=== PATIENT | female | born 1970 | race African-American/Black ===

== ENCOUNTER 2019-02-25 09:29 | Emergency (ER) | payer MEDICAID ==
[~2019-02-25] VITALS: Ht 172.7 cm; Wt 155.0 kg
[2019-02-25] MEDS ORDERED: MORPHINE SULFATE 4 MG/ML CPJ (NOT FOR IM USE) IV ONE ×2 (10:15→11:30)
[2019-02-25] MEDS ORDERED: HYDROCODONE/ACETAMINOPHEN 5/325MG TABLET PO ONE (13:30)
[2019-02-25 14:24] VITALS: BP 196/83
== END 2019-02-25 18:37 | disposition home or self-care (01) ==
LOC: ER 09:29
DX: S89.81XA Other specified injuries of right lower leg, initial encounter (principal); W18.39XA Other fall on same level, initial encounter; Y93.89 Activity, other specified; Y92.89 Other specified places as the place of occurrence of the external cause; Y99.8 Other external cause status; E78.00 Pure hypercholesterolemia, unspecified; I10 Essential (primary) hypertension; Z95.0 Presence of cardiac pacemaker
CPT/HCPCS: 73552; 73562; 73590; 73700; 96374; 96376; 99284; J2270

== ENCOUNTER 2019-03-11 11:05 | Emergency (ER) | payer MEDICAID ==
[~2019-03-11] VITALS: Ht 172.7 cm; Wt 158.0 kg
[2019-03-11] MEDS ORDERED: ONDANSETRON HCL 4MG/2ML INJ IV STA (12:19)
[2019-03-11] MEDS ORDERED: SODIUM CHLORIDE 0.9% 1,000 ML IV ONE (12:19)
[2019-03-11] MEDS ORDERED: MORPHINE SULFATE 4 MG/ML CPJ (NOT FOR IM USE) IV STA (12:19)
[2019-03-11] MEDS ORDERED: LIDOCAINE 1%/EPI 1:100,000 10 ML VIAL IJ ONE (12:30)
[2019-03-11] MEDS ORDERED: TETANUS, DIPHTHERIA, PERTUSSIS VAC/PF 0.5ML (>7YR OLD) IM ONE (12:30)
[2019-03-11 13:11] LABS: BASOPHILS % 0.8 % (0.0-2.0); EOSINOPHILS % 2.3 % (0.0-5.0); HEMATOCRIT. 31.4 % (36.0-48.0); HEMOGLOBIN. 10.1 g/dL (12.0-16.0); LYMPHOCYTES % 19.8 % (20.0-50.0); MEAN CORPUSCULAR HEMOGLOBIN 27.8 pg (28.0-32.0); MEAN CORPUSCULAR VOLUME 86.2 fL (81.0-99.0); MEAN PLATELET VOLUME 7.6 fl (7.4-10.4); MONOCYTES % 9.3 % (2.0-8.0); NEUTROPHILS % 67.8 % (40.0-76.0); PLATELET 299 x1000/uL (130-400); RED BLOOD CELL COUNT 3.64 mill/uL (4.2-5.4); RED CELL DISTRIBUTION WIDTH 15.2 % (11.6-14.6)
[2019-03-11] MEDS ORDERED: LIDOCAINE HCL/EPINEPHRINE 1%-EPI 1:100,000 20 ML VIAL INFIL SCH (13:15)
[2019-03-11 13:18] LABS: CHLORIDE 104 mEq/L (98-107)
[2019-03-11] MEDS ORDERED: PIPERACILLIN/TAZ 3.375G PREMIX 50 ML IV ONE (13:45)
[2019-03-11] MEDS ORDERED: POTASSIUM CHLORIDE 20MEQ TABLET SR PO ONE (13:45)
[2019-03-11] MEDS ORDERED: VANCOMYCIN 1 G PREMIX 200 ML IV ONE (13:45)
[2019-03-11 14:45] VITALS: BP 176/88
[2019-03-11] MEDS ORDERED: HYDROCODONE/ACETAMINOPHEN 5/325MG TABLET PO ONE (14:45)
== END 2019-03-11 17:01 | disposition home or self-care (01) ==
LOC: ER 11:05
DX: E87.6 Hypokalemia (principal); I10 Essential (primary) hypertension; Z90.49 Acquired absence of other specified parts of digestive tract; Z98.890 Other specified postprocedural states
CPT/HCPCS: 36415; 71045; 80053; 85025; 90471; 90715; 93971; 96365; 96368; 96375; 99284; J2270; J2405; J2543; J3370; J3490; J7030

== ENCOUNTER 2019-03-26 21:42 | Emergency (ER) | payer MEDICAID ==
[~2019-03-26] VITALS: Ht 172.7 cm; Wt 140.0 kg
[2019-03-26] MEDS ORDERED: SODIUM CHLORIDE 0.9% 1,000 ML IV ONE (22:56)
[2019-03-26] MEDS ORDERED: MORPHINE SULFATE 4 MG/ML CPJ (NOT FOR IM USE) IV STA (22:56)
[2019-03-26] MEDS ORDERED: ONDANSETRON 4MG ODT PO STA (22:56)
[2019-03-26] MEDS ORDERED: CLONIDINE 0.1MG TABLET PO ONE (23:00)
[2019-03-26 23:55] LABS: BASOPHILS % 0.3 % (0.0-2.0); EOSINOPHILS % 2.5 % (0.0-5.0); HEMATOCRIT. 31.9 % (36.0-48.0); HEMOGLOBIN. 10.3 g/dL (12.0-16.0); LYMPHOCYTES % 15.7 % (20.0-50.0); MEAN CORPUSCULAR HEMOGLOBIN 27.3 pg (28.0-32.0); MEAN CORPUSCULAR VOLUME 84.3 fL (81.0-99.0); MEAN PLATELET VOLUME 7.8 fl (7.4-10.4); MONOCYTES % 5.4 % (2.0-8.0); NEUTROPHILS % 76.1 % (40.0-76.0); PLATELET 360 x1000/uL (130-400); RED BLOOD CELL COUNT 3.78 mill/uL (4.2-5.4); RED CELL DISTRIBUTION WIDTH 15.3 % (11.6-14.6)
[2019-03-27 00:05] LABS: PARTIAL THROMBOPLASTIN TIME 22.1 sec (23.4-31.0); PROTHROMBIN TIME 10.1 sec (9.6-11.0)
[2019-03-27 00:12] LABS: CHLORIDE 107 mEq/L (98-107)
[2019-03-27 00:33] LABS: HCG SCREEN NEGATIVE
[2019-03-27] MEDS ORDERED: MORPHINE SULFATE 4 MG/ML CPJ (NOT FOR IM USE) IV ONE ×2 (00:45→03:00)
[2019-03-27] MEDS ORDERED: BACITRACIN ZINC OINT UDPKT TOP ONE (03:30)
[2019-03-27 04:52] VITALS: BP 131/65
== END 2019-03-27 04:54 | disposition home or self-care (01) ==
LOC: ER 21:42
DX: S20.01XA Contusion of right breast, initial encounter (principal); S50.312A Abrasion of left elbow, initial encounter; M25.561 Pain in right knee; M79.602 Pain in left arm; I11.9 Hypertensive heart disease without heart failure; M54.30 Sciatica, unspecified side; Z90.49 Acquired absence of other specified parts of digestive tract; Z98.890 Other specified postprocedural states; Z98.84 Bariatric surgery status; V49.88XA Car occupant (driver) (passenger) injured in other specified transport accidents, initial encounter; Y93.89 Activity, other specified; Y92.511 Restaurant or cafe as the place of occurrence of the external cause; Y99.8 Other external cause status
CPT/HCPCS: 36415; 71045; 73030; 73060; 73070; 73090; 73562; 80053; 84484; 84703; 85025; 85610; 85730; 93005; 96374; 96376; 99284; J2270; J7030; Q0162

== ENCOUNTER 2019-04-03 04:26 | Inpatient (IN) | payer MEDICAID ==
[~2019-04-03] VITALS: Ht 175.3 cm; Wt 163.3 kg
[2019-04-03] MEDS ORDERED: MORPHINE SULFATE 4 MG/ML CPJ (NOT FOR IM USE) IV STA ×2 (05:42→06:30)
[2019-04-03] MEDS ORDERED: ONDANSETRON HCL 4MG/2ML INJ IV STA ×2 (05:42→06:30)
[2019-04-03] MEDS ORDERED: SODIUM CHLORIDE 0.9% 1,000 ML IV ONE (06:30)
[2019-04-03 07:23] LABS: HEMATOCRIT. 25.4 % (36.0-48.0); HEMOGLOBIN. 8.3 g/dL (12.0-16.0); MEAN CORPUSCULAR HEMOGLOBIN 27.4 pg (28.0-32.0); MEAN PLATELET VOLUME 7.5 fl (7.4-10.4); PLATELET 216 x1000/uL (130-400); RED BLOOD CELL COUNT 3.03 mill/uL (4.2-5.4); RED CELL DISTRIBUTION WIDTH 15.3 % (11.6-14.6)
[2019-04-03 07:29] LABS: PROTHROMBIN TIME 10.2 sec (9.6-11.0)
[2019-04-03 07:31] LABS: CHLORIDE 106 mEq/L (98-107)
[2019-04-03 07:41] LABS: HCG SCREEN NEGATIVE
[2019-04-03 09:36] LABS: PLATELET ESTIMATE NORMAL
[2019-04-03] MEDS ORDERED: MORPHINE SULFATE 10 MG/ML CPJ IV ONE ×2 (09:45→13:15)
[2019-04-03] MEDS ORDERED: IOHEXOL-300 100 ML BOTTLE ONE (09:55)
[2019-04-03] MEDS ORDERED: CEFAZOLIN 1000MG PREMIX 50 ML IV ONE (10:45)
[2019-04-03 18:30] VITALS: BP 154/68
[2019-04-03] MEDS ORDERED: DOCU250C14 PO (18:51)
[2019-04-03] MEDS ORDERED: COR12 PO (18:51)
[2019-04-03] MEDS ORDERED: CARI250T PO (18:51)
[2019-04-03] MEDS ORDERED: ISOS1TAB PO (18:51)
[2019-04-03] MEDS ORDERED: ACETAMINOPHEN 325MG TABLET PO PRN (20:30)
[2019-04-03] MEDS: ONDANSETRON HCL 4MG/2ML INJ IV PRN (20:59)
[2019-04-03] MEDS: MORPHINE SULFATE 2 MG/ML CPJ (NOT FOR IM USE) IV PRN (21:00)
[2019-04-03] MEDS ORDERED: VANCOMYCIN 2,000 MG in DEXT 5% WATER 500 ML IV NR (22:00)
[2019-04-03] MEDS: HYDROCODONE/ACETAMINOPHEN 5/325MG TABLET PO PRN (22:05)
[2019-04-03] MEDS: PIPERACILLIN/TAZOBACTAM 3.375 G in DEXT 5% WATER 100 ML IV SCH (22:24)
[2019-04-04] VITALS: BP 119/61
[2019-04-04] MEDS: ONDANSETRON HCL 4MG/2ML INJ IV PRN (02:16)
[2019-04-04] MEDS: MORPHINE SULFATE 2 MG/ML CPJ (NOT FOR IM USE) IV PRN ×5 (02:17→21:09)
[2019-04-04] MEDS: HYDROCODONE/ACETAMINOPHEN 5/325MG TABLET PO PRN (02:48)
[2019-04-04] MEDS: SODIUM CHLORIDE 0.9% 1,000 ML IV SCH ×2 (04:31→21:10)
[2019-04-04] MEDS: PIPERACILLIN/TAZOBACTAM 3.375 G in DEXT 5% WATER 100 ML IV SCH ×3 (05:39→18:14)
[2019-04-04 07:00] LABS: HEMATOCRIT. 24.4 % (36.0-48.0); HEMOGLOBIN. 8.2 g/dL (12.0-16.0); MEAN CORPUSCULAR HEMOGLOBIN 27.7 pg (28.0-32.0); MEAN CORPUSCULAR VOLUME 83.1 fL (81.0-99.0); MEAN PLATELET VOLUME 7.2 fl (7.4-10.4); PLATELET 228 x1000/uL (130-400); RED BLOOD CELL COUNT 2.94 mill/uL (4.2-5.4); RED CELL DISTRIBUTION WIDTH 15.3 % (11.6-14.6)
[2019-04-04 07:07] LABS: CHLORIDE 105 mEq/L (98-107)
[2019-04-04 08:00] VITALS: BP 143/70
[2019-04-04 10:50] LABS: PLATELET ESTIMATE NORMAL
[2019-04-04] MEDS: VANCOMYCIN 1500MG in DEXTROSE 5% WATER 250ML IV SCH ×2 (11:30→21:09)
[2019-04-04 12:00] VITALS: BP 156/73
[2019-04-04 16:27] VITALS: BP 172/96
[2019-04-04 19:02] VITALS: BP 155/82
[2019-04-04 20:00] VITALS: BP 137/67
[2019-04-05] VITALS: BP 133/76
[2019-04-05] MEDS: PIPERACILLIN/TAZOBACTAM 3.375 G in DEXT 5% WATER 100 ML IV SCH ×5 (00:51→23:32)
[2019-04-05] MEDS: MORPHINE SULFATE 2 MG/ML CPJ (NOT FOR IM USE) IV PRN ×6 (01:53→23:35)
[2019-04-05 04:00] VITALS: BP 151/76
[2019-04-05 08:00] VITALS: BP 134/60
[2019-04-05] MEDS: VANCOMYCIN 1500MG in DEXTROSE 5% WATER 250ML IV SCH (10:08)
[2019-04-05 16:00] VITALS: BP 130/80
[2019-04-05 20:00] VITALS: BP 124/59
[2019-04-05] MEDS: VANCOMYCIN 1 G PREMIX 200 ML IV SCH (21:50)
[2019-04-05] MEDS: HYDROCODONE/ACETAMINOPHEN 5/325MG TABLET PO PRN (21:57)
[2019-04-06] VITALS: BP 124/64
[2019-04-06 04:00] VITALS: BP 147/68
[2019-04-06] MEDS: MORPHINE SULFATE 2 MG/ML CPJ (NOT FOR IM USE) IV PRN ×4 (04:13→18:41)
[2019-04-06] MEDS: PIPERACILLIN/TAZOBACTAM 3.375 G in DEXT 5% WATER 100 ML IV SCH ×3 (05:04→18:40)
[2019-04-06 08:00] VITALS: BP 124/65
[2019-04-06 08:36] LABS: BASOPHILS % 0.5 % (0.0-2.0); EOSINOPHILS % 3.6 % (0.0-5.0); HEMATOCRIT. 27.7 % (36.0-48.0); LYMPHOCYTES % 20.1 % (20.0-50.0); MEAN CORPUSCULAR HEMOGLOBIN 27.1 pg (28.0-32.0); MEAN CORPUSCULAR VOLUME 83.7 fL (81.0-99.0); MONOCYTES % 9.4 % (2.0-8.0); NEUTROPHILS % 66.4 % (40.0-76.0); PLATELET 294 x1000/uL (130-400); RED BLOOD CELL COUNT 3.31 mill/uL (4.2-5.4); RED CELL DISTRIBUTION WIDTH 15.5 % (11.6-14.6)
[2019-04-06] MEDS: VANCOMYCIN 1 G PREMIX 200 ML IV SCH ×2 (09:00→21:15)
[2019-04-06 12:00] VITALS: BP 139/69
[2019-04-06] MEDS: HYDROCODONE/ACETAMINOPHEN 5/325MG TABLET PO PRN (12:44)
[2019-04-06 16:00] VITALS: BP 147/63
[2019-04-06 20:00] VITALS: BP 150/72
[2019-04-06] MEDS: ONDANSETRON HCL 4MG/2ML INJ IV PRN (21:15)
[2019-04-07] VITALS: BP 135/72
[2019-04-07] MEDS: PIPERACILLIN/TAZOBACTAM 3.375 G in DEXT 5% WATER 100 ML IV SCH ×3 (00:19→13:08)
[2019-04-07] MEDS: MORPHINE SULFATE 2 MG/ML CPJ (NOT FOR IM USE) IV PRN ×4 (00:27→15:06)
[2019-04-07 04:00] VITALS: BP 132/68
[2019-04-07] MEDS: ONDANSETRON HCL 4MG/2ML INJ IV PRN (06:51)
[2019-04-07 08:00] VITALS: BP 150/79
[2019-04-07] MEDS: VANCOMYCIN 1 G PREMIX 200 ML IV SCH (09:01)
[2019-04-07 10:20] LABS: BASOPHILS % 0.8 % (0.0-2.0); EOSINOPHILS % 2.8 % (0.0-5.0); HEMATOCRIT. 28.2 % (36.0-48.0); HEMOGLOBIN. 9.1 g/dL (12.0-16.0); LYMPHOCYTES % 15.3 % (20.0-50.0); MEAN CORPUSCULAR HEMOGLOBIN 27.2 pg (28.0-32.0); MEAN CORPUSCULAR VOLUME 84.6 fL (81.0-99.0); MEAN PLATELET VOLUME 8.1 fl (7.4-10.4); MONOCYTES % 8.3 % (2.0-8.0); NEUTROPHILS % 72.8 % (40.0-76.0); RED BLOOD CELL COUNT 3.33 mill/uL (4.2-5.4); RED CELL DISTRIBUTION WIDTH 15.8 % (11.6-14.6)
[2019-04-07 10:21] LABS: PLATELET 254 x1000/uL (130-400)
[2019-04-07 12:00] VITALS: BP 162/73
[2019-04-07 16:00] VITALS: BP 137/68
[2019-04-07 18:31] VITALS: BP 137/68
== END 2019-04-07 19:09 | disposition home health service (06) | DRG 384 ==
LOC: ER 04:26 → 6WST 10:33 → EDBEDREQTM 10:38 → EDBEDREQ 10:38 → EDBEDREQSVC 10:38 → ENRESERV 17:01
PROVIDERS: ADMIT Internal Medicine; ATTEND Internal Medicine
PROC: 30233N1 Transfusion of Nonautologous Red Blood Cells into Peripheral Vein, Percutaneous Approach (ICD-10-PCS; principal; 2019-04-03)
PROC: 0H9T0ZX Drainage of Right Breast, Open Approach, Diagnostic (ICD-10-PCS; 2019-04-03)
DX: S20.01XA Contusion of right breast, initial encounter (principal); I96 Gangrene, not elsewhere classified; E66.01 Morbid (severe) obesity due to excess calories; D62 Acute posthemorrhagic anemia; Z68.43 Body mass index [BMI] 50.0-59.9, adult; S42.402A Unspecified fracture of lower end of left humerus, initial encounter for closed fracture; S40.812A Abrasion of left upper arm, initial encounter; I10 Essential (primary) hypertension; M19.90 Unspecified osteoarthritis, unspecified site; Z79.899 Other long term (current) drug therapy; Y93.89 Activity, other specified; V89.2XXA Person injured in unspecified motor-vehicle accident, traffic, initial encounter; Z95.810 Presence of automatic (implantable) cardiac defibrillator; Z98.84 Bariatric surgery status; Y92.89 Other specified places as the place of occurrence of the external cause; Y99.8 Other external cause status; Z90.49 Acquired absence of other specified parts of digestive tract
CPT/HCPCS: 36415; 71260; 73060; 73070; 74177; 80048; 80053; 80202; 81025; 84484; 84703; 85025; 86850; 86900; 86920; 87070; 93005; 93971; 96361; 96365; 96375; 96376; 99291; J0690; J2270; J2405; J2543; J3370; J7030; J7040; J7060; P9016; Q9967

== ENCOUNTER 2020-05-09 21:18 | Inpatient (IN) | payer MEDICAID ==
[~2020-05-09] VITALS: Ht 172.7 cm; Wt 149.7 kg
[2020-05-09 20:00] VITALS: BP 142/72
[2020-05-09 21:18] VITALS: BP 142/72
[~2020-05-09 21:18] MED LIST: CARI250T PO; COR12 PO; CYCL25PO21 MT; DOCU250C14 PO; HYDR-4350 MT; IBUP-2029 MT; ISOS1TAB PO; LIDO700A15 TP
[2020-05-09] MEDS ORDERED: ONDANSETRON HCL 4MG TABLET PO PRN (22:30)
[2020-05-09] MEDS ORDERED: ACETAMINOPHEN 325MG TABLET PO PRN (22:30)
[2020-05-09] MEDS: HYDROCODONE/ACETAMINOPHEN 10/325MG TABLET PO PRN (22:55)
[2020-05-10] VITALS: BP 174/75
[2020-05-10] MEDS: TIZANIDINE HCL 2MG TABLET PO PRN ×3 (02:27→20:35)
[2020-05-10] MEDS: GABAPENTIN 300MG CAPSULE PO SCH ×3 (06:06→21:00)
[2020-05-10] MEDS ORDERED: SIMETHICONE 80MG TABLET CHEW PO PRN (07:00)
[2020-05-10 07:28] LABS: BASOPHILS % 0.5 % (0.0-2.0); EOSINOPHILS % 2.5 % (0.0-5.0); HEMATOCRIT. 35.3 % (36.0-48.0); HEMOGLOBIN. 11.4 g/dL (12.0-16.0); LYMPHOCYTES % 33.3 % (20.0-50.0); MEAN CORPUSCULAR VOLUME 86.7 fL (81.0-99.0); MEAN PLATELET VOLUME 8.7 fl (7.4-10.4); MONOCYTES % 10.9 % (2.0-8.0); NEUTROPHILS % 52.8 % (40.0-76.0); PLATELET 173 x1000/uL (130-400); RED BLOOD CELL COUNT 4.07 mill/uL (4.2-5.4); RED CELL DISTRIBUTION WIDTH 15.2 % (11.6-14.6)
[2020-05-10 07:46] VITALS: BP 160/74
[2020-05-10 07:47] LABS: CHLORIDE 105 mEq/L (98-107)
[2020-05-10] MEDS ORDERED: ACETAMINOPHEN 325MG TABLET PO PRN (08:15)
[2020-05-10] MEDS: CYANOCOBALAMIN 1000MCG/ML VIAL IM SCH (08:18)
[2020-05-10] MEDS: DOCUSATE SODIUM 100MG CAPSULE PO SCH ×2 (08:18→16:19)
[2020-05-10] MEDS: LACTULOSE 20G/30ML UDC PO SCH ×6 (08:19→16:19)
[2020-05-10] MEDS: HYDROCODONE/ACETAMINOPHEN 10/325MG TABLET PO PRN ×3 (08:19→18:40)
[2020-05-10] MEDS: ENOXAPARIN 40MG/0.4ML SYR SUBCUT SCH ×2 (08:20→20:35)
[2020-05-10 20:00] VITALS: BP 180/68
[2020-05-10] MEDS: POLYETHYLENE GLYCOL 3350 (17GM) 1 DOSE PACK PO SCH (20:35)
[2020-05-10] MEDS: CLONIDINE 0.1MG TABLET PO PRN (21:02)
[2020-05-10 21:56] VITALS: BP 141/66
[2020-05-11] MEDS: HYDROCODONE/ACETAMINOPHEN 10/325MG TABLET PO PRN ×4 (01:54→19:33)
[2020-05-11] MEDS: GABAPENTIN 300MG CAPSULE PO SCH ×3 (05:29→21:31)
[2020-05-11 07:39] LABS: BASOPHILS % 0.4 % (0.0-2.0); EOSINOPHILS % 2.8 % (0.0-5.0); HEMATOCRIT. 32.7 % (36.0-48.0); HEMOGLOBIN. 10.6 g/dL (12.0-16.0); LYMPHOCYTES % 29.1 % (20.0-50.0); MEAN CORPUSCULAR HEMOGLOBIN 28.1 pg (28.0-32.0); MEAN CORPUSCULAR VOLUME 86.5 fL (81.0-99.0); MEAN PLATELET VOLUME 9.3 fl (7.4-10.4); MONOCYTES % 11.5 % (2.0-8.0); NEUTROPHILS % 56.2 % (40.0-76.0); PLATELET 170 x1000/uL (130-400); RED BLOOD CELL COUNT 3.78 mill/uL (4.2-5.4); RED CELL DISTRIBUTION WIDTH 15.6 % (11.6-14.6)
[2020-05-11 07:56] LABS: CHLORIDE 106 mEq/L (98-107)
[2020-05-11 08:11] LABS: PHOSPHORUS 3.6 mg/dL (2.5-4.9); TOTAL IRON BINDING CAPACITY 412 ug/dL (250-450)
[2020-05-11 08:26] LABS: FOLIC ACID (FOLATE) SERUM 9.5 ng/mL (>5.38)
[2020-05-11 08:34] VITALS: BP 169/82
[2020-05-11] MEDS: CYANOCOBALAMIN 1000MCG/ML VIAL IM SCH (09:42)
[2020-05-11] MEDS: CLONIDINE 0.1MG TABLET PO PRN (09:42)
[2020-05-11] MEDS: DOCUSATE SODIUM 100MG CAPSULE PO SCH ×2 (09:42→16:42)
[2020-05-11] MEDS: ENOXAPARIN 40MG/0.4ML SYR SUBCUT SCH ×2 (09:44→21:32)
[2020-05-11] MEDS: TIZANIDINE HCL 2MG TABLET PO PRN ×2 (10:01→22:07)
[2020-05-11] MEDS ORDERED: LACTULOSE 20G/30ML UDC PO NR (13:00)
[2020-05-11 14:56] VITALS: BP 110/40
[2020-05-11] MEDS: LACTULOSE 20G/30ML UDC PO SCH (16:43)
[2020-05-11 20:00] VITALS: BP 146/79
[2020-05-11] MEDS: POLYETHYLENE GLYCOL 3350 (17GM) 1 DOSE PACK PO SCH (21:00)
[2020-05-12] MEDS: HYDROCODONE/ACETAMINOPHEN 10/325MG TABLET PO PRN ×3 (03:57→19:45)
[2020-05-12] MEDS: GABAPENTIN 300MG CAPSULE PO SCH ×3 (05:25→21:29)
[2020-05-12] MEDS: LACTULOSE 20G/30ML UDC PO SCH (07:51)
[2020-05-12 08:00] VITALS: BP 147/73
[2020-05-12] MEDS: ENOXAPARIN 40MG/0.4ML SYR SUBCUT SCH ×2 (08:23→21:29)
[2020-05-12] MEDS: DOCUSATE SODIUM 100MG CAPSULE PO SCH ×2 (08:24→15:37)
[2020-05-12] MEDS: CYANOCOBALAMIN 1000MCG/ML VIAL IM SCH (08:24)
[2020-05-12] MEDS: TIZANIDINE HCL 2MG TABLET PO PRN ×2 (11:07→22:29)
[2020-05-12 19:47] VITALS: BP 154/79
[2020-05-12] MEDS: POLYETHYLENE GLYCOL 3350 (17GM) 1 DOSE PACK PO SCH (21:00)
[2020-05-13] MEDS: HYDROCODONE/ACETAMINOPHEN 10/325MG TABLET PO PRN ×2 (04:21→16:44)
[2020-05-13] MEDS: GABAPENTIN 300MG CAPSULE PO SCH ×3 (05:50→21:39)
[2020-05-13 08:00] VITALS: BP 159/82
[2020-05-13] MEDS: LACTULOSE 20G/30ML UDC PO SCH (09:00)
[2020-05-13] MEDS: ENOXAPARIN 40MG/0.4ML SYR SUBCUT SCH ×2 (09:18→21:40)
[2020-05-13] MEDS: CYANOCOBALAMIN 1000MCG/ML VIAL IM SCH (09:18)
[2020-05-13] MEDS: TIZANIDINE HCL 2MG TABLET PO PRN ×2 (09:19→21:48)
[2020-05-13] MEDS: DOCUSATE SODIUM 100MG CAPSULE PO SCH ×2 (09:19→16:43)
[2020-05-13] MEDS: AMLODIPINE 10MG TABLET PO SCH (19:17)
[2020-05-13 20:00] VITALS: BP 118/72
[2020-05-13] MEDS: POLYETHYLENE GLYCOL 3350 (17GM) 1 DOSE PACK PO SCH (21:39)
[2020-05-14] MEDS: GABAPENTIN 300MG CAPSULE PO SCH ×3 (05:08→21:02)
[2020-05-14] MEDS: HYDROCODONE/ACETAMINOPHEN 10/325MG TABLET PO PRN ×3 (05:10→21:03)
[2020-05-14 05:40] LABS: BASOPHILS % 0.7 % (0.0-2.0); EOSINOPHILS % 3.5 % (0.0-5.0); HEMATOCRIT. 37.8 % (36.0-48.0); LYMPHOCYTES % 37.3 % (20.0-50.0); MEAN CORPUSCULAR HEMOGLOBIN 27.9 pg (28.0-32.0); MEAN CORPUSCULAR VOLUME 87.8 fL (81.0-99.0); MEAN PLATELET VOLUME 9.1 fl (7.4-10.4); MONOCYTES % 11.9 % (2.0-8.0); NEUTROPHILS % 46.6 % (40.0-76.0); PLATELET 200 x1000/uL (130-400); RED BLOOD CELL COUNT 4.31 mill/uL (4.2-5.4); RED CELL DISTRIBUTION WIDTH 15.7 % (11.6-14.6)
[2020-05-14 05:59] LABS: CHLORIDE 107 mEq/L (98-107)
[2020-05-14] MEDS: DOCUSATE SODIUM 100MG CAPSULE PO SCH ×2 (07:56→17:02)
[2020-05-14] MEDS: AMLODIPINE 10MG TABLET PO SCH (07:56)
[2020-05-14] MEDS: ENOXAPARIN 40MG/0.4ML SYR SUBCUT SCH ×2 (07:57→21:01)
[2020-05-14] MEDS: LACTULOSE 20G/30ML UDC PO SCH (07:57)
[2020-05-14 08:02] VITALS: BP 157/75
[2020-05-14] MEDS: TIZANIDINE HCL 2MG TABLET PO PRN ×2 (10:04→23:25)
[2020-05-14] MEDS: MULTIVITAMINS,THER W-MINERALS TABLET PO SCH (17:02)
[2020-05-14 17:07] LABS: 25-HYDROXY VITAMIN D3 5.6 ng/mL (.)
[2020-05-14] MEDS: ZINC OXIDE 20% OINT 30GM TOP SCH ×2 (17:28→21:03)
[2020-05-14 20:00] VITALS: BP 123/63
[2020-05-14] MEDS: POLYETHYLENE GLYCOL 3350 (17GM) 1 DOSE PACK PO SCH (21:00)
[2020-05-14] MEDS: HYDROCORTISONE 1% CREAM 30GM TOP SCH (21:04)
[2020-05-15] MEDS: HYDROCODONE/ACETAMINOPHEN 10/325MG TABLET PO PRN ×3 (03:51→18:37)
[2020-05-15] MEDS: GABAPENTIN 300MG CAPSULE PO SCH ×3 (06:03→21:41)
[2020-05-15] MEDS: ZINC OXIDE 20% OINT 30GM TOP SCH ×4 (06:03→21:44)
[2020-05-15] MEDS: HYDROCORTISONE 1% CREAM 30GM TOP SCH ×3 (06:03→21:44)
[2020-05-15 07:57] VITALS: BP 130/60
[2020-05-15] MEDS: ENOXAPARIN 40MG/0.4ML SYR SUBCUT SCH ×2 (08:12→21:42)
[2020-05-15] MEDS: AMLODIPINE 10MG TABLET PO SCH (08:12)
[2020-05-15] MEDS: MULTIVITAMINS,THER W-MINERALS TABLET PO SCH (08:13)
[2020-05-15] MEDS: LACTULOSE 20G/30ML UDC PO SCH (08:13)
[2020-05-15] MEDS: DOCUSATE SODIUM 100MG CAPSULE PO SCH ×2 (08:13→17:24)
[2020-05-15] MEDS: TIZANIDINE HCL 2MG TABLET PO PRN ×2 (08:51→21:42)
[2020-05-15 14:02] VITALS: BP 120/63
[2020-05-15] MEDS ORDERED: ERGOCALCIFEROL 50000UNITS CAPSULE PO SCH (15:00)
[2020-05-15 18:32] VITALS: BP 124/49
[2020-05-15 20:00] VITALS: BP 120/62
[2020-05-15] MEDS: POLYETHYLENE GLYCOL 3350 (17GM) 1 DOSE PACK PO SCH (21:00)
[2020-05-16] MEDS: HYDROCODONE/ACETAMINOPHEN 10/325MG TABLET PO PRN ×3 (03:33→23:14)
[2020-05-16] MEDS: GABAPENTIN 300MG CAPSULE PO SCH ×3 (05:44→21:49)
[2020-05-16] MEDS: ZINC OXIDE 20% OINT 30GM TOP SCH ×3 (05:44→16:48)
[2020-05-16] MEDS: HYDROCORTISONE 1% CREAM 30GM TOP SCH ×3 (05:45→21:52)
[2020-05-16 08:20] VITALS: BP 123/50
[2020-05-16] MEDS: LACTULOSE 20G/30ML UDC PO SCH (08:43)
[2020-05-16] MEDS: AMLODIPINE 10MG TABLET PO SCH (09:08)
[2020-05-16] MEDS: TIZANIDINE HCL 2MG TABLET PO PRN ×2 (09:08→18:38)
[2020-05-16] MEDS: DOCUSATE SODIUM 100MG CAPSULE PO SCH ×2 (09:08→16:47)
[2020-05-16] MEDS: ENOXAPARIN 40MG/0.4ML SYR SUBCUT SCH ×2 (09:08→21:48)
[2020-05-16] MEDS: MULTIVITAMINS,THER W-MINERALS TABLET PO SCH (09:09)
[2020-05-16 20:00] VITALS: BP 103/48
[2020-05-16] MEDS: POLYETHYLENE GLYCOL 3350 (17GM) 1 DOSE PACK PO SCH (21:00)
[2020-05-17] MEDS: ZINC OXIDE 20% OINT 30GM TOP SCH ×3 (00:49→11:54)
[2020-05-17] MEDS: TIZANIDINE HCL 2MG TABLET PO PRN ×2 (03:21→11:53)
[2020-05-17] MEDS: GABAPENTIN 300MG CAPSULE PO SCH (06:17)
[2020-05-17 08:00] VITALS: BP 146/89
[2020-05-17] MEDS: LACTULOSE 20G/30ML UDC PO SCH (08:50)
[2020-05-17] MEDS: DOCUSATE SODIUM 100MG CAPSULE PO SCH (08:51)
[2020-05-17] MEDS: ENOXAPARIN 40MG/0.4ML SYR SUBCUT SCH (08:51)
[2020-05-17] MEDS: AMLODIPINE 10MG TABLET PO SCH (08:52)
[2020-05-17] MEDS: MULTIVITAMINS,THER W-MINERALS TABLET PO SCH (08:52)
[2020-05-17] MEDS: HYDROCODONE/ACETAMINOPHEN 10/325MG TABLET PO PRN (08:53)
[2020-05-17 11:35] VITALS: BP 129/82
[2020-05-20] MEDS ORDERED: CYANOCOBALAMIN 1000MCG/ML VIAL IM SCH (09:00)
== END 2020-05-17 12:05 | disposition home health service (06) | DRG 347 ==
PROVIDERS: ADMIT Physical Medicine & Rehabilitation Spinal Cord Injury Medicine; ATTEND Internal Medicine
DX: M48.061 Spinal stenosis, lumbar region without neurogenic claudication (principal); G82.20 Paraplegia, unspecified; M48.02 Spinal stenosis, cervical region; G89.4 Chronic pain syndrome; E66.01 Morbid (severe) obesity due to excess calories; R32 Unspecified urinary incontinence; R15.9 Full incontinence of feces; R53.81 Other malaise; R26.9 Unspecified abnormalities of gait and mobility; I11.0 Hypertensive heart disease with heart failure; I50.22 Chronic systolic (congestive) heart failure; M75.02 Adhesive capsulitis of left shoulder; D64.9 Anemia, unspecified; D72.819 Decreased white blood cell count, unspecified; E44.0 Moderate protein-calorie malnutrition; E53.8 Deficiency of other specified B group vitamins; E55.9 Vitamin D deficiency, unspecified; M47.26 Other spondylosis with radiculopathy, lumbar region; M51.16 Intervertebral disc disorders with radiculopathy, lumbar region; Z98.84 Bariatric surgery status; Z95.810 Presence of automatic (implantable) cardiac defibrillator; Z90.49 Acquired absence of other specified parts of digestive tract; Z83.3 Family history of diabetes mellitus; R29.6 Repeated falls; M19.90 Unspecified osteoarthritis, unspecified site; M25.551 Pain in right hip; M25.561 Pain in right knee; Z68.1 Body mass index [BMI] 19.9 or less, adult
CPT/HCPCS: 36415; 80048; 80053; 82306; 82728; 82746; 83540; 83550; 83735; 84100; 84134; 84443; 85025; 93306; 93970; 97110; 97116; 97162; 97166; 97530; 97535; J1650; J3420

== ENCOUNTER 2020-09-20 22:55 | Emergency (ER) | payer MEDICAID, OTHER ==
[~2020-09-20] VITALS: Ht 172.7 cm; Wt 150.0 kg
[2020-09-21] MEDS ORDERED: KETOROLAC 30MG/ML VIAL IV STA (00:10)
[2020-09-21] MEDS ORDERED: ONDANSETRON HCL 4MG/2ML INJ IV STA (00:10)
[2020-09-21 00:37] LABS: BASOPHILS % 0.4 % (0.0-2.0); EOSINOPHILS % 1.4 % (0.0-5.0); HEMATOCRIT. 36.7 % (36.0-48.0); HEMOGLOBIN. 11.6 g/dL (12.0-16.0); LYMPHOCYTES % 15.3 % (20.0-50.0); MEAN CORPUSCULAR HEMOGLOBIN 26.3 pg (28.0-32.0); MONOCYTES % 7.4 % (2.0-8.0); NEUTROPHILS % 75.5 % (40.0-76.0); PLATELET 242 x1000/uL (130-400); RED BLOOD CELL COUNT 4.43 mill/uL (4.2-5.4); RED CELL DISTRIBUTION WIDTH 16.5 % (11.6-14.6)
[2020-09-21 00:43] LABS: CHLORIDE 108 mEq/L (98-107)
[2020-09-21 01:33] LABS: CLARITY URINE CLEAR (CLEAR); COLOR URINE YELLOW (YELLOW); KETONES URINE NEGATIVE (NEGATIVE); LEUKOCYTE ESTERASE URINE NEGATIVE (NEGATIVE); NITRITE URINE NEGATIVE (NEGATIVE); OCCULT BLOOD URINE NEGATIVE (NEGATIVE); PH URINE 7.5 (4.5-8.0); PROTEIN URINE NEGATIVE (NEGATIVE); SPECIFIC GRAVITY URINE 1.018 (1.005-1.030)
[2020-09-21 01:57] VITALS: BP 168/89
== END 2020-09-21 01:58 | disposition home or self-care (01) ==
LOC: ER 22:55
DX: R10.9 Unspecified abdominal pain (principal); E66.9 Obesity, unspecified; I10 Essential (primary) hypertension; Z68.43 Body mass index [BMI] 50.0-59.9, adult; Z88.0 Allergy status to penicillin; Z98.890 Other specified postprocedural states; Z90.49 Acquired absence of other specified parts of digestive tract
CPT/HCPCS: 36415; 74176; 80053; 81003; 83690; 84484; 85025; 93005; 96374; 96375; 99285; J1885; J2405

== ENCOUNTER 2020-11-24 19:30 | Emergency (ER) | payer OTHER, MEDICAID ==
[~2020-11-24] VITALS: Ht 172.7 cm; Wt 150.0 kg
[~2020-11-24 19:30] MED LIST changes: +CLIN300C12 MT; +FURO-152 MT; +POTA8CAP20 MT
[2020-11-24] MEDS ORDERED: HYDRALAZINE 20MG/ML VIAL IV ONE (23:30)
[2020-11-24] MEDS ORDERED: FUROSEMIDE 40MG TABLET PO ONE (23:30)
[2020-11-24] MEDS ORDERED: FUROSEMIDE 40MG/4ML VIAL IVP NR (23:30)
[2020-11-24] MEDS ORDERED: LABETALOL 5MG/ML SYR 20 MG/4 ML SYRINGE IV ONE (23:30)
[2020-11-25 00:03] LABS: BASOPHILS % 0.4 % (0.0-2.0); EOSINOPHILS % 6.6 % (0.0-5.0); HEMATOCRIT. 35.7 % (36.0-48.0); HEMOGLOBIN. 11.6 g/dL (12.0-16.0); LYMPHOCYTES % 34.6 % (20.0-50.0); MEAN CORPUSCULAR VOLUME 83.2 fL (81.0-99.0); MEAN PLATELET VOLUME 8.3 fl (7.4-10.4); MONOCYTES % 10.7 % (2.0-8.0); NEUTROPHILS % 47.7 % (40.0-76.0); PLATELET 212 x1000/uL (130-400); RED BLOOD CELL COUNT 4.29 mill/uL (4.2-5.4); RED CELL DISTRIBUTION WIDTH 17.1 % (11.6-14.6)
[2020-11-25 00:07] LABS: CHLORIDE 105 mEq/L (98-107)
[2020-11-25] MEDS ORDERED: FURO-151 MT (00:56)
[2020-11-25] MEDS ORDERED: HYDROCODONE/ACETAMINOPHEN 10/325MG TABLET PO ONE (01:00)
[2020-11-25] MEDS ORDERED: GABAPENTIN 300MG CAPSULE PO ONE (01:00)
[2020-11-25 01:45] VITALS: BP 130/51
== END 2020-11-25 01:49 | disposition home or self-care (01) ==
LOC: ER 20:38
DX: R60.0 Localized edema (principal); I11.0 Hypertensive heart disease with heart failure; I50.9 Heart failure, unspecified; Z95.0 Presence of cardiac pacemaker; Z98.890 Other specified postprocedural states; Z79.899 Other long term (current) drug therapy; Z88.0 Allergy status to penicillin
CPT/HCPCS: 36415; 71045; 80053; 83880; 85025; 93005; 96374; 96375; 99285; J0360; J1940

== ENCOUNTER 2021-07-27 10:42 | Emergency (ER) | payer MEDICAID, OTHER ==
[~2021-07-27] VITALS: Ht 175.3 cm; Wt 150.0 kg
[~2021-07-27 10:42] MED LIST changes: +CYCL25PO15 MT; -CYCL25PO21 MT; +FURO-151 MT
[2021-07-27 11:36] LABS: BASOPHILS % 0.7 % (0.0-2.0); EOSINOPHILS % 3.1 % (0.0-5.0); HEMATOCRIT. 30.4 % (36.0-48.0); HEMOGLOBIN. 9.8 g/dL (12.0-16.0); LYMPHOCYTES % 33.9 % (20.0-50.0); MEAN CORPUSCULAR HEMOGLOBIN 26.9 pg (28.0-32.0); MEAN CORPUSCULAR VOLUME 83.6 fL (81.0-99.0); MEAN PLATELET VOLUME 8.5 fl (7.4-10.4); MONOCYTES % 13.7 % (2.0-8.0); NEUTROPHILS % 48.6 % (40.0-76.0); PLATELET 169 x1000/uL (130-400); RED BLOOD CELL COUNT 3.64 mill/uL (4.2-5.4); RED CELL DISTRIBUTION WIDTH 15.6 % (11.6-14.6)
[2021-07-27 11:46] LABS: CHLORIDE 108 mEq/L (98-107)
[2021-07-27] MEDS ORDERED: HYDROCODONE/ACETAMINOPHEN 5/325MG TABLET PO STA (12:53)
[2021-07-27 14:36] VITALS: BP 177/70
== END 2021-07-27 14:54 | disposition home or self-care (01) ==
LOC: ER 10:50
DX: R07.89 Other chest pain (principal); R60.0 Localized edema; R20.0 Anesthesia of skin; I11.0 Hypertensive heart disease with heart failure; I50.9 Heart failure, unspecified; I44.7 Left bundle-branch block, unspecified; Z95.810 Presence of automatic (implantable) cardiac defibrillator; Z88.0 Allergy status to penicillin; Z79.899 Other long term (current) drug therapy
CPT/HCPCS: 36415; 71045; 80053; 83880; 84484; 85025; 93005; 99285

== ENCOUNTER 2021-08-06 17:42 | Emergency (ER) | payer OTHER ==
[~2021-08-06] VITALS: Ht 175.3 cm; Wt 152.0 kg
[2021-08-06] MEDS ORDERED: MORPHINE SULFATE 4 MG/ML CPJ (NOT FOR IM USE) IV ONE (21:15)
[2021-08-06] MEDS ORDERED: MORPHINE SULFATE 10 MG/ML CPJ IM ONE (21:15)
[2021-08-06] MEDS ORDERED: MORPHINE SULFATE 10 MG/ML CPJ IM NR (21:45)
[2021-08-06 21:54] LABS: BASOPHILS % 0.4 % (0.0-2.0); EOSINOPHILS % 2.8 % (0.0-5.0); HEMATOCRIT. 32.4 % (36.0-48.0); HEMOGLOBIN. 10.8 g/dL (12.0-16.0); LYMPHOCYTES % 34.5 % (20.0-50.0); MEAN CORPUSCULAR HEMOGLOBIN 27.8 pg (28.0-32.0); MEAN CORPUSCULAR VOLUME 83.4 fL (81.0-99.0); MEAN PLATELET VOLUME 9.1 fl (7.4-10.4); MONOCYTES % 9.3 % (2.0-8.0); PLATELET 188 x1000/uL (130-400); RED BLOOD CELL COUNT 3.88 mill/uL (4.2-5.4); RED CELL DISTRIBUTION WIDTH 15.8 % (11.6-14.6)
[2021-08-06 22:16] LABS: CHLORIDE 106 mEq/L (98-107); HCG SCREEN NEGATIVE
[2021-08-06 22:26] LABS: CREATINE KINASE 284 IU/L (26-192)
[2021-08-06 23:42] VITALS: BP 156/90
== END 2021-08-06 23:44 | disposition home or self-care (01) ==
LOC: ER 17:47
DX: M79.605 Pain in left leg (principal); M79.604 Pain in right leg; I11.0 Hypertensive heart disease with heart failure; I50.9 Heart failure, unspecified; Z88.0 Allergy status to penicillin; Z79.899 Other long term (current) drug therapy; Z98.890 Other specified postprocedural states; Z90.49 Acquired absence of other specified parts of digestive tract
CPT/HCPCS: 36415; 80053; 82550; 84703; 85025; 96372; 99283; J2270

== ENCOUNTER 2022-11-03 07:25 | Emergency (ER) | payer MEDICAID, OTHER ==
[~2022-11-03] VITALS: Ht 175.3 cm; Wt 152.4 kg
[~2022-11-03 07:25] MED LIST changes: +CLIN-194 MT; -CLIN300C12 MT; -ISOS1TAB PO; +ISOS1TAB2 PO
[2022-11-03 07:38] VITALS: TEMP 97.9; O2SAT 100
[2022-11-03 09:00] VITALS: BP 116/60; PULSE 71; RESP 16
[2022-11-03] MEDS ORDERED: IBUPROFEN 800MG TABLET PO ONE (09:00)
[2022-11-03] MEDS ORDERED: NAPR-1176 MT (09:38)
[2022-11-03] MEDS ORDERED: LIDO700A15 TP (09:38)
== END 2022-11-03 10:15 | disposition home or self-care (01) ==
LOC: ER 07:25
DX: S93.601A Unspecified sprain of right foot, initial encounter (principal); I11.0 Hypertensive heart disease with heart failure; I50.9 Heart failure, unspecified; D64.9 Anemia, unspecified; Z98.890 Other specified postprocedural states; Z90.49 Acquired absence of other specified parts of digestive tract; Z79.899 Other long term (current) drug therapy; X58.XXXA Exposure to other specified factors, initial encounter; Y93.89 Activity, other specified; Y92.89 Other specified places as the place of occurrence of the external cause; Y99.8 Other external cause status
CPT/HCPCS: 73610; 73630; 99284